=== PATIENT | female | born 1990 | race Two or more races ===

== ENCOUNTER 2017-05-20 17:17 | Emergency (ER) | payer OTHER ==
[~2017-05-20] VITALS: Ht 167.6 cm; Wt 64.0 kg
[~2017-05-20 17:17] MED LIST: ENDOCET 5-3251 EACH PO; IBUPROFEN800 MG PO; NAPROSYN500 MG PO; NOHOMEMEDS; VALIUM2 MG PO
[2017-05-20 18:10] LABS: HEMATOCRIT 40.4 % (36.0-46.0); HEMOGLOBIN 13.4 G/DL (11.9-15.5); MCH 29.7 PG (29.0-34.0); MCHC 33.2 G/DL (30.0-36.0); MCV 89.6 FL (83-99); PLATELET COUNT 280 K/uL (156-360); RBC DIS.WIDTH-CV 12.3 % (11.8-14.6); RBC DIS.WIDTH-SD 40.5 % (39-53); RED BLOOD COUNT 4.51 M/uL (3.80-5.20); WHITE BLOOD COUNT 4.9 K/uL (4.1-10.2)
[2017-05-20 18:25] LABS: CHLORIDE 108 mEq/L (99-109); POTASSIUM 3.9 mEq/L (3.7-5.4); SODIUM 138 mEq/L (136-147)
[2017-05-20 18:26] LABS: GLUCOSE 91 mg/dL (70-99)
[2017-05-20 18:30] LABS: CREATININE 0.7 mg/dL (0.6-1.3); GFR ESTIMATE (CALCULATED) > 59 mL/min/
[2017-05-20 18:31] LABS: UREA NITROGEN (BUN) 8 mg/dL (9-23)
[2017-05-20 18:38] LABS: QUANTITATIVE HCG < 4.0 MIU/ML
[2017-05-20] MEDS ORDERED: MECLIZINE HCL25 MG PO (20:32)
[2017-05-20 20:44] VITALS: BP 105/84
== END 2017-05-20 20:46 | disposition home or self-care (01) ==
LOC: EME 17:17
DX: R42 Dizziness and giddiness (principal); R55 Syncope and collapse; F41.9 Anxiety disorder, unspecified; F32.9 Major depressive disorder, single episode, unspecified; F17.200 Nicotine dependence, unspecified, uncomplicated
CPT/HCPCS: 71046; 80048; 84702; 85027; 93005; 99281; 99283